=== PATIENT | male | born 1985 | race African-American/Black ===

== ENCOUNTER 2017-05-06 00:44 | Emergency (ER) | payer SELFPAY ==
[~2017-05-06] VITALS: Ht 185.4 cm; Wt 81.6 kg
[2017-05-06] MEDS ORDERED: NAPROSYN500 MG PO (02:01)
== END 2017-05-06 02:47 | disposition home or self-care (01) ==
LOC: ED 00:44
DX: S60.032A Contusion of left middle finger without damage to nail, initial encounter (principal); X58.XXXA Exposure to other specified factors, initial encounter; Y93.89 Activity, other specified; Y92.89 Other specified places as the place of occurrence of the external cause; Y99.8 Other external cause status

== ENCOUNTER 2018-09-28 18:15 | Emergency (ER) | payer SELFPAY ==
[~2018-09-28] VITALS: Ht 187.9 cm; Wt 81.6 kg
[~2018-09-28 18:15] MED LIST: NAPROSYN500 MG PO
[2018-09-28] MEDS ORDERED: EPIPEN 2-P0.3 MG/0.3 IJ (19:28)
== END 2018-09-28 19:36 | disposition home or self-care (01) ==
LOC: ED 18:15
DX: T63.441A Toxic effect of venom of bees, accidental (unintentional), initial encounter (principal); R07.0 Pain in throat; Z91.030 Bee allergy status; Y92.89 Other specified places as the place of occurrence of the external cause

== ENCOUNTER 2018-12-09 14:46 | Emergency (ER) | payer SELFPAY ==
[~2018-12-09] VITALS: Ht 185.4 cm; Wt 77.1 kg
[~2018-12-09 14:46] MED LIST changes: +EPIPEN 2-P0.3 MG/0.3 IJ
[2018-12-09] MEDS ORDERED: TYLENOL325 M1 PO (16:22)
[2018-12-09] MEDS ORDERED: Motrin,Rufen400 MG PO (16:22)
== END 2018-12-09 16:44 | disposition home or self-care (01) ==
LOC: ED 14:46
DX: S93.401A Sprain of unspecified ligament of right ankle, initial encounter (principal); S93.601A Unspecified sprain of right foot, initial encounter; W01.198A Fall on same level from slipping, tripping and stumbling with subsequent striking against other object, initial encounter; Y93.89 Activity, other specified; Y92.89 Other specified places as the place of occurrence of the external cause; Y99.8 Other external cause status